=== PATIENT | female | born 1985 ===

== ENCOUNTER → 2023-06-18 08:03 | Outpatient (CLI) | payer BC, SELFPAY ==
--- NOTE | ~2023-06-18 | US_ITS ---
US abdomen limited INDICATION: Right upper quadrant pain PROCEDURE: Realtime right upper abdominal ultrasound. COMPARISON: No prior studies for comparison. FINDINGS: The pancreas is normal without focal mass or pancreatic ductal dilation. Liver echotexture is normal without focal mass or intrahepatic biliary dilatation. There is normal directional flow i n the portal vein. There are gallbladder polyps measuring 3 mm or less. No definite gallstones, gallbladder wall thicken ing or pericholecystic fluid. Common bile duct measures 2 mm. No sonographic Lee's sign. IMPRESSION: 1: Gallbladder polyps. Reviewed, dictated and finalized at location L. IMPRESSION: 1: Gallbladder polyps.
== END ==
PROVIDERS: PCP Nurse Practitioner Family; Visit Provider Nurse Practitioner Family
DX: R10.11 Right upper quadrant pain (principal); K21.9 Gastro-esophageal reflux disease without esophagitis; K82.4 Cholesterolosis of gallbladder
CPT/HCPCS: 76705